=== PATIENT | female | born 1945 ===

== ENCOUNTER 2022-11-28 00:45 | Inpatient (IN) ==
[2022-11-28] MEDS ORDERED: Lactated Ringers 1000 ml BAG 1,000 ML IV ONE ×2 (00:56→02:46)
[2022-11-28 01:35] LABS: ABS Lymphocytes 0.7 10^3/ul (1.0-4.8); ABS Monocytes 0.7 10^3/ul (0-0.8); Hematocrit 47 % (35-47); Lymphocyte % 4.1 %; Mean Corpuscular HGB Conc 32 g/dL (31-36); Mean Corpuscular Hemoglobin 29 pg (27-31); Mean Corpuscular Volume 89 fL (80-97); Mean Platelet Volume 9.4 fL (7.4-10.4); Nucleated Red Blood Cells % 0.1; Platelet Count 289 10^3/uL (150-450); Red Blood Count 5.23 10^6 /uL (3.70-4.87); Red Cell Distribution Width 15 % (10-15); White Blood Count 17.4 10^3/uL (3.5-10.8)
[2022-11-28 01:46] LABS: INR 1.04 (0.88-1.18)
[2022-11-28 02:04] LABS: Albumin 3.4 g/dL (3.2-5.2); Calcium 9.7 mg/dL (8.6-10.3); Total Bilirubin 0.7 mg/dL (0.2-1.0)
[2022-11-28 02:10] LABS: Albumin/Globulin Ratio 1.2 (1-3); C Reactive Protein 101.93 mg/L (<8.01); Globulin 2.9 g/dL (2-4); Total Protein 6.3 g/dL (6.4-8.9); eGFR CKD-EPI 28.3 (>60)
[2022-11-28 02:17] LABS: Potassium 2.7 mmol/L (3.5-5.0)
[2022-11-28 03:16] LABS: High Sensitivity Troponin 1 Hr 299 pg/mL (<15)
[2022-11-28] MEDS ORDERED: Vancomycin 1,000 MG in NS 0.9% 250 ml 250 ML IVPB ONE (03:33)
[2022-11-28] MEDS ORDERED: Cefepime 1 GM in Dextrose 1 GM/50 ML BAG IV ONE (03:33)
[2022-11-28] MEDS ORDERED: Glycerin ADULT 2.4 gm SUPP PR ONE (03:58)
[2022-11-28 05:12] LABS: Urine Appearance Cloudy; Urine Bilirubin Negative (Negative); Urine Blood 1+ (Negative); Urine Color Amber; Urine Glucose Negative (Negative); Urine Ketones 1+ (Negative); Urine Nitrite Negative (Negative); Urine Protein 2+(100 mg/dL) (Negative); Urine Specific Gravity 1.018 (1.002-1.030); Urine Urobilinogen Positive (Negative)
[2022-11-28 05:26] LABS: Urine Bacteria 3+ (Absent); Urine Red Blood Cell Trace(0-2/hpf) (Absent); Urine Squamous Epithelial Cell Present (Absent); Urine White Blood Cell 2+(11-20/hpf) (Absent)
[2022-11-28] MEDS: KCL 20 MEQ/100 ML IVPREMIX 20 MEQ/100 ML BAG IV SCH ×2 (05:31→09:22)
[2022-11-28] MEDS ORDERED: Potassium Chloride LIQUID 20 MEQ/15 ML LIQUID PO ONE (06:32)
[2022-11-28] MEDS ORDERED: Lactated Ringers 1000 ml BAG 1,000 ML IV SCH (07:00)
[2022-11-28] MEDS ORDERED: KCL 20 MEQ/100 ML IVPREMIX 20 MEQ/100 ML BAG IV ONE (07:31)
[2022-11-28] MEDS: Polyethylene Glycol 3350 17 GM PACKET PO SCH ×2 (08:28→22:15)
[2022-11-28] MEDS: Heparin 5000 UNITS/ML 1 mL VIAL SUBCUT SCH ×2 (10:24→22:08)
[2022-11-28 13:51] LABS: CO2 Carbon Dioxide 23 mmol/L (22-32); Calcium 9.1 mg/dL (8.6-10.3); Potassium 3.1 mmol/L (3.5-5.0); eGFR CKD-EPI 29.9 (>60)
[2022-11-28 14:05] LABS: Anion Gap 16 mmol/L (2-11); Chloride 115 mmol/L (101-111); Sodium 154 mmol/L (135-145)
[2022-11-28] MEDS: cefTRIAXone 1 gm/50 mL D5W 1 GM/50 ML BAG IV SCH (15:55)
[2022-11-28] MEDS: Nystatin TOP POWDER 15 GM BTL TOPICAL SCH (22:08)
[2022-11-29 01:03] LABS: CO2 Carbon Dioxide 21 mmol/L (22-32); Calcium 8.6 mg/dL (8.6-10.3)
[2022-11-29 01:09] LABS: Blood Urea Nitrogen 77 mg/dL (6-24); Glucose 113 mg/dL (70-100); eGFR CKD-EPI 34.6 (>60)
[2022-11-29 01:13] LABS: Anion Gap 18 mmol/L (2-11); Chloride 116 mmol/L (101-111); Sodium 155 mmol/L (135-145)
[2022-11-29 05:58] LABS: Hematocrit 38 % (35-47); Hemoglobin 12.6 g/dL (12.0-16.0); Mean Corpuscular HGB Conc 33 g/dL (31-36); Mean Corpuscular Hemoglobin 30 pg (27-31); Mean Corpuscular Volume 90 fL (80-97); Mean Platelet Volume 8.9 fL (7.4-10.4); Platelet Count 220 10^3/uL (150-450); Red Blood Count 4.26 10^6 /uL (3.70-4.87); Red Cell Distribution Width 15 % (10-15); White Blood Count 12.5 10^3/uL (3.5-10.8)
[2022-11-29 06:29] LABS: Albumin 2.8 g/dL (3.2-5.2); Albumin/Globulin Ratio 1.3 (1-3); Calcium 8.4 mg/dL (8.6-10.3); Globulin 2.2 g/dL (2-4); Potassium 2.8 mmol/L (3.5-5.0); Total Bilirubin 0.6 mg/dL (0.2-1.0); eGFR CKD-EPI 38.7 (>60)
[2022-11-29] MEDS ORDERED: D5W KCl 40 MEQ 1000 ml 1,000 ML IV SCH (08:00)
[2022-11-29] MEDS: Heparin 5000 UNITS/ML 1 mL VIAL SUBCUT SCH ×2 (09:29→23:35)
[2022-11-29] MEDS: Polyethylene Glycol 3350 17 GM PACKET PO SCH ×2 (09:29→23:30)
[2022-11-29] MEDS: Nystatin TOP POWDER 15 GM BTL TOPICAL SCH ×2 (09:29→23:35)
[2022-11-29] MEDS: Potassium Chloride IV 40 MEQ in D5W 1000 ml BAG 980 ML IVPB SCH ×4 (10:16→18:07)
[2022-11-29 11:24] LABS: TSH Ultra Thyroid Stim Horm 2.35 mcIU/mL (0.34-5.60)
[2022-11-29 11:36] LABS: Folate 9.3 ng/mL (5.90-24.80)
[2022-11-29] MEDS: cefTRIAXone 1 gm/50 mL D5W 1 GM/50 ML BAG IV SCH (15:09)
[2022-11-29 15:23] LABS: Calcium 8.7 mg/dL (8.6-10.3); Potassium 3.2 mmol/L (3.5-5.0); eGFR CKD-EPI 42.4 (>60)
[2022-11-29] MEDS ORDERED: Potassium Chlor 10 meq TAB PO ONE (15:32)
[2022-11-29 21:32] LABS: Calcium 8.4 mg/dL (8.6-10.3); Potassium 3.6 mmol/L (3.5-5.0)
[2022-11-30 06:00] LABS: Hematocrit 35 % (35-47); Mean Corpuscular HGB Conc 34 g/dL (31-36); Mean Corpuscular Hemoglobin 30 pg (27-31); Mean Corpuscular Volume 89 fL (80-97); Mean Platelet Volume 9.1 fL (7.4-10.4); Platelet Count 219 10^3/uL (150-450); Red Blood Count 3.98 10^6 /uL (3.70-4.87); Red Cell Distribution Width 15 % (10-15); White Blood Count 10.8 10^3/uL (3.5-10.8)
[2022-11-30 06:20] LABS: Albumin 2.6 g/dL (3.2-5.2); Calcium 8.2 mg/dL (8.6-10.3); Magnesium 2.4 mg/dL (1.9-2.7); Potassium 3.8 mmol/L (3.5-5.0); Total Bilirubin 0.6 mg/dL (0.2-1.0)
[2022-11-30 06:26] LABS: Albumin/Globulin Ratio 1.2 (1-3); Globulin 2.2 g/dL (2-4); Total Protein 4.8 g/dL (6.4-8.9); eGFR CKD-EPI 48.6 (>60)
[2022-11-30] MEDS ORDERED: D5W 1/2 NS 1000 ml BAG 1,000 ML IV SCH (08:00)
[2022-11-30] MEDS: Heparin 5000 UNITS/ML 1 mL VIAL SUBCUT SCH ×2 (08:25→21:03)
[2022-11-30] MEDS: Polyethylene Glycol 3350 17 GM PACKET PO SCH ×2 (08:25→21:06)
[2022-11-30] MEDS: Nystatin TOP POWDER 15 GM BTL TOPICAL SCH ×2 (08:25→21:03)
[2022-11-30 13:02] LABS: Calcium 8.3 mg/dL (8.6-10.3); Potassium 4.2 mmol/L (3.5-5.0); eGFR CKD-EPI 52.9 (>60)
[2022-11-30] MEDS: cefTRIAXone 1 gm/50 mL D5W 1 GM/50 ML BAG IV SCH (15:57)
[2022-12-01] MEDS: Polyethylene Glycol 3350 17 GM PACKET PO SCH ×2 (07:26→21:57)
[2022-12-01 08:44] LABS: Magnesium 2.2 mg/dL (1.9-2.7); Potassium 4.1 mmol/L (3.5-5.0); eGFR CKD-EPI 69.5 (>60)
[2022-12-01] MEDS: Heparin 5000 UNITS/ML 1 mL VIAL SUBCUT SCH ×2 (10:32→21:57)
[2022-12-01] MEDS: Nystatin TOP POWDER 15 GM BTL TOPICAL SCH ×2 (10:32→21:57)
[2022-12-01] MEDS: cefTRIAXone 1 gm/50 mL D5W 1 GM/50 ML BAG IV SCH (15:48)
[2022-12-02 06:18] LABS: Hematocrit 37 % (35-47); Hemoglobin 12.4 g/dL (12.0-16.0); Mean Corpuscular HGB Conc 34 g/dL (31-36); Mean Corpuscular Hemoglobin 31 pg (27-31); Mean Corpuscular Volume 90 fL (80-97); Mean Platelet Volume 9.1 fL (7.4-10.4); Platelet Count 223 10^3/uL (150-450); Red Blood Count 4.05 10^6 /uL (3.70-4.87); Red Cell Distribution Width 15 % (10-15); White Blood Count 8.5 10^3/uL (3.5-10.8)
[2022-12-02 06:33] LABS: ABS Eosinophils 0.4 10^3/ul (0-0.6); ABS Lymphocytes 1.4 10^3/ul (1.0-4.8); ABS Monocytes 0.6 10^3/ul (0-0.8); Eosinophil % 5.2 %; Lymphocyte % 16.6 %; Nucleated Red Blood Cells % 0.1
[2022-12-02 06:39] LABS: Albumin 2.5 g/dL (3.2-5.2); Albumin/Globulin Ratio 1.1 (1-3); Calcium 8.2 mg/dL (8.6-10.3); Globulin 2.3 g/dL (2-4); Potassium 4.5 mmol/L (3.5-5.0); Total Bilirubin 0.6 mg/dL (0.2-1.0); Total Protein 4.8 g/dL (6.4-8.9); eGFR CKD-EPI 73.6 (>60)
[2022-12-02] MEDS: Polyethylene Glycol 3350 17 GM PACKET PO SCH ×2 (07:39→20:45)
[2022-12-02] MEDS: Heparin 5000 UNITS/ML 1 mL VIAL SUBCUT SCH ×2 (09:43→20:39)
[2022-12-02] MEDS: Nystatin TOP POWDER 15 GM BTL TOPICAL SCH ×2 (09:44→20:39)
[2022-12-03] MEDS: Polyethylene Glycol 3350 17 GM PACKET PO SCH ×2 (08:02→20:31)
[2022-12-03] MEDS: Heparin 5000 UNITS/ML 1 mL VIAL SUBCUT SCH ×2 (10:14→20:35)
[2022-12-03] MEDS: Nystatin TOP POWDER 15 GM BTL TOPICAL SCH ×2 (10:40→20:35)
[2022-12-04] MEDS: Polyethylene Glycol 3350 17 GM PACKET PO SCH (07:25)
[2022-12-04] MEDS: Heparin 5000 UNITS/ML 1 mL VIAL SUBCUT SCH (10:27)
[2022-12-04] MEDS: Nystatin TOP POWDER 15 GM BTL TOPICAL SCH (10:29)
[2022-12-04 10:58] LABS: Rapid COVID-19 Molecular Undetected (Undetected)
[2022-12-04 11:26] VITALS: BP 137/75
== END 2022-12-04 13:08 | DRG 535 ==
LOC: ED 00:45 → SUATTDRO 06:03 → EDHOLD 06:03 → SSU 10:38
PROVIDERS: ADMIT Hospitalist; ATTEND Hospitalist